=== PATIENT | female | born 1970 | race Caucasian/White ===

== ENCOUNTER → 2017-09-18 | Outpatient (CLI) | payer OTHER ==
[~2017-09-18] MED LIST: ALPR.25 PO; AMBI10TA PO; LEVO-244 PO; LISI40TA PO; PHEN-556 PO; SYNT112T PO; TOPA50TA7 PO
[2017-09-18 11:46] LABS: AUTOMATED NEUTROPHIL # 4.6 TH/MM3 (1.8-7.7); BASOPHIL # 0.1 TH/MM3 (0-0.2); BASOPHIL % 0.7 % (0.0-2.0); EOSINOPHIL # 0.1 TH/MM3 (0-0.4); EOSINOPHIL % 1.9 % (0.0-4.0); HEMATOCRIT 42.7 % (35.0-46.0); HEMOGLOBIN 14.1 GM/DL (11.6-15.3); LYMPH % 27.3 % (9.0-44.0); MEAN CELL VOLUME 92.4 FL (80.0-100.0); MEAN CORPUSCULAR HEMOGLOBIN 30.6 PG (27.0-34.0); MEAN CORPUSCULAR HGB CONC 33.1 % (32.0-36.0); MEAN PLATELET VOLUME 6.9 FL (7.0-11.0); MONO % 6.9 % (0.0-8.0); MONOCYTE # 0.5 TH/MM3 (0-0.9); NEUT % 63.2 % (16.0-70.0); PLATELET COUNT 319 TH/MM3 (150-450); RED BLOOD COUNT 4.62 MIL/MM3 (4.00-5.30); WHITE BLOOD COUNT 7.3 TH/MM3 (4.0-11.0)
== END ==
LOC: PHPRE 10:31
PROVIDERS: ATTEND Orthopaedic Surgery
DX: Z01.812 Encounter for preprocedural laboratory examination (principal); S92.351K Displaced fracture of fifth metatarsal bone, right foot, subsequent encounter for fracture with nonunion; X58.XXXA Exposure to other specified factors, initial encounter
CPT/HCPCS: 85025

== ENCOUNTER → 2017-09-27 | Day surgery (SDC) | payer OTHER ==
[~2017-09-27] VITALS: Ht 160 cm; Wt 93.0 kg
[~2017-09-27] MED LIST changes: +ACETAMINOPHEN/HYDROcodone 325 MG/5 MG TAB ONE; +BUPIVACAINE HCL PF 0.25% 30 ML VIAL ONE; +CHLORHEXIDINE GLUCONATE 2 % 1 PACK (2 CLOTHS) TOPICAL PRN; +CHLORHEXIDINE GLUCONATE 4% SOLN 120 ML BTL TOPICAL SCH; +CLINDAMYCIN 900 MG/NS 100 ML IV SCH; +CLINDAMYCIN PHOS 900 MG/6 ML VIAL ONE; +HYDROmorphone HCL PF 0.5 MG/0.5 ML SYRINGE ONE; +HYDROmorphone HCL PF 1 MG/ML VIAL ONE; +KETOROLAC TROMETHAMINE 30 MG/ML (IVP) VIAL ONE; +LACTATED RINGER'S 1000 ML INJ 1,000 ML ONE; +LACTATED RINGER'S 1000 ML IV PRN; +METOPROLOL TARTRATE 25 MG TAB PO PRN; +MORPHINE SULFATE 2 MG/ML INJ ONE; +POVIDONE IODINE 5% (ANTISEPSIS KIT) 4 APPLICATIONS EACH NARE PRN; +SODIUM CHLOR 0.9% 250 ML INJ 250 ML ONE; +SODIUM CHLORID 0.9% 500 ML IV PRN; +VANCOMYCIN 1000 MG/NS 250 ML (for <70 kg) IV SCH; +VANCOMYCIN HCL 1000 MG VIAL ONE
--- NOTE | 2017-09-27 11:18 | MP ---
cc: KATHERYN VAZQUEZ M.D. DATE OF SURGERY 09/27/[address] Royer Vazquez PREOPERATIVE DIAGNOSIS Nonunion right fifth metatarsal POSTOPERATIVE DIAGNOSIS Nonunion right fifth metatarsal PROCEDURE 1. Open reduction internal fixation and repair of nonunion of metatarsal shaft of fifth digit 2. Iliac crest bone graft harvesting. DETAILS OF THE PROCEDURE The patient was placed on the operating room table in the supine position and adequate general anesthesia was administered by the anesthesiologist. The right foot and the right iliac crest region were prepped and draped in the usual sterile fashion. The time-out was then called and the patient's name, location procedure etc. were full fully confirmed. A longitudinal incision was made over the fifth metatarsal shaft extending from the metatarsophalangeal joint and down to the base of the fifth metatarsal. The wound was taken down through the subcutaneous tissues and bleeding points were electrocauterized. We did exsanguinate the right lower extremity prior to incision and a tourniquet was inflated to 300. The underlying fascia and the periosteum were then exposed with limited dissection. The fracture site and nonunion site was confirmed to be a nonunion with a small amount of motion occurring at that level. We therefore proceeded with a curettage and debridement of the fracture site which was oblique and . The edges of this bone were freshened as well. Attention was then turned to the right iliac crest where a cortical cancellous bone graft was taken with a 1-inch incision being made over it. That wound was taken down through subcutaneous tissues and bleeding points were also electrocauterized. The deep fascia directly over the iliac crest was incised exposing the cortex. A small 1/2-inch osteotome was used to make a window through the iliac crest medial to the anterior superior iliac spine so as to avoid any possible injury to the neurologic components. The small curette was used to bring out some additional cancellus bone which was then transferred to the right foot. It was then placed between the bony fragments at the nonunion site and the reduction clamp was used to reduce the nonunion to a more anatomical position. A locking type plate with Combi holes was then applied and bent to the contour of the bone. A T-plate was utilized. A cortex screw was placed distally and another cortex screw was placed proximally and all the additional screws except for the anterior distal screw which was a cortex screws were locking screws. The fracture did appear now to be stable. We then obtained some additional bone graft and was placed over the nonunion site and further impacted in place and held there with the closure of the fascial tissue. The subcutaneous tissue was closed with interrupted 3-0 Vicryl and the skin edges were approximated with narrows luis. Attention was then turned to the right iliac crest. Bone wax was utilized over the bleeding area and the deep fascia was then closed with interrupted sutures placed in a [id number] fashion utilizing #1 Vicryl. Subcutaneous tissue was closed with interrupted 3-0 Vicryl and skin edges were approximated with metal luis. Xeroform gauze had been applied over both wounds. A bulky compression type dressing was placed over the right hip. The 4x4, sterile gauze was placed over the right foot wound and then wrapped with sterile Sof-Rol followed by a sterile Greg bandage. The patient's right foot was then placed back into her previously ordered and used boot. The tourniquet was deflated and examination of the toes revealed adequate return of circulation. Sponge count, needle counts and instrument counts were reported correct x2. The procedure was tolerated well and the patient went to the recovery room in satisfactory condition. MD ANDREA Castillo/HARVINDER /10:49 AM /10:57 AM
[2017-09-27 11:55] VITALS: TEMP 98.1
[2017-09-27 13:35] VITALS: BP 97/66; PULSE 75; RESP 16; O2SAT 98
== END | disposition home or self-care (01) ==
LOC: PHSDC 06:36
PROVIDERS: ATTEND Orthopaedic Surgery
DX: S92.351K Displaced fracture of fifth metatarsal bone, right foot, subsequent encounter for fracture with nonunion (principal); I10 Essential (primary) hypertension; E03.9 Hypothyroidism, unspecified; X50.1XXA Overexertion from prolonged static or awkward postures, initial encounter
CPT/HCPCS: 01480; 28322; 76000; C1713; J1170; J1885; J2270; J3370; J7050; J7120

== ENCOUNTER → 2018-03-18 | Outpatient (CLI) | payer OTHER ==
[~2018-03-18] MED LIST changes: -ACETAMINOPHEN/HYDROcodone 325 MG/5 MG TAB ONE; -BUPIVACAINE HCL PF 0.25% 30 ML VIAL ONE; +BUPR150CR PO; -CHLORHEXIDINE GLUCONATE 2 % 1 PACK (2 CLOTHS) TOPICAL PRN; -CHLORHEXIDINE GLUCONATE 4% SOLN 120 ML BTL TOPICAL SCH; -CLINDAMYCIN 900 MG/NS 100 ML IV SCH; -CLINDAMYCIN PHOS 900 MG/6 ML VIAL ONE; -HYDROmorphone HCL PF 0.5 MG/0.5 ML SYRINGE ONE; -HYDROmorphone HCL PF 1 MG/ML VIAL ONE; -KETOROLAC TROMETHAMINE 30 MG/ML (IVP) VIAL ONE; -LACTATED RINGER'S 1000 ML INJ 1,000 ML ONE; -LACTATED RINGER'S 1000 ML IV PRN; -METOPROLOL TARTRATE 25 MG TAB PO PRN; -MORPHINE SULFATE 2 MG/ML INJ ONE; -POVIDONE IODINE 5% (ANTISEPSIS KIT) 4 APPLICATIONS EACH NARE PRN; -SODIUM CHLOR 0.9% 250 ML INJ 250 ML ONE; -SODIUM CHLORID 0.9% 500 ML IV PRN; -VANCOMYCIN 1000 MG/NS 250 ML (for <70 kg) IV SCH; -VANCOMYCIN HCL 1000 MG VIAL ONE
[2018-03-18 11:06] LABS: AUTOMATED NEUTROPHIL # 5.8 TH/MM3 (1.8-7.7); BASOPHIL # 0.1 TH/MM3 (0-0.2); EOSINOPHIL # 0.2 TH/MM3 (0-0.4); EOSINOPHIL % 1.8 % (0.0-4.0); HEMATOCRIT 39.5 % (35.0-46.0); HEMOGLOBIN 13.4 GM/DL (11.6-15.3); LYMPH % 25.9 % (9.0-44.0); LYMPHOCYTE # 2.4 TH/MM3 (1.0-4.8); MEAN CELL VOLUME 90.5 FL (80.0-100.0); MEAN CORPUSCULAR HEMOGLOBIN 30.6 PG (27.0-34.0); MEAN CORPUSCULAR HGB CONC 33.8 % (32.0-36.0); MEAN PLATELET VOLUME 7.7 FL (7.0-11.0); MONO % 8.1 % (0.0-8.0); MONOCYTE # 0.8 TH/MM3 (0-0.9); NEUT % 63.2 % (16.0-70.0); PLATELET COUNT 269 TH/MM3 (150-450); RED BLOOD COUNT 4.37 MIL/MM3 (4.00-5.30); RED CELL DISTRIBUTION WIDTH 12.1 % (11.6-17.2); WHITE BLOOD COUNT 9.3 TH/MM3 (4.0-11.0)
--- NOTE | 2018-03-18 16:05 | EKG ---
Date Performed: 03/18/2018 Time Performed: 10:53:52 PTAGE: 47 years EKG: Sinus rhythm NORMAL ECG NO PREVIOUS TRACING DOCTOR: Oly Campbell Interpretating Date/Time 03/18/2018 16:02:40
== END ==
LOC: PHPRE 10:22
PROVIDERS: ATTEND Orthopaedic Surgery
DX: Z01.812 Encounter for preprocedural laboratory examination (principal); Z01.810 Encounter for preprocedural cardiovascular examination; S92.351K Displaced fracture of fifth metatarsal bone, right foot, subsequent encounter for fracture with nonunion; X58.XXXD Exposure to other specified factors, subsequent encounter
CPT/HCPCS: 36415; 85025; 93005

== ENCOUNTER → 2018-03-21 | Day surgery (SDC) | payer OTHER ==
[~2018-03-21] VITALS: Ht 160 cm; Wt 106.0 kg
[~2018-03-21] MED LIST changes: +ACETAMINOPHEN/HYDROcodone 325 MG/5 MG TAB ONE; +BUPIVACAINE HCL PF 0.5% 10 ML VIAL ONE; +CHLORHEXIDINE GLUCONATE 2 % 1 PACK (2 CLOTHS) TOPICAL PRN; +CHLORHEXIDINE GLUCONATE 4% SOLN 120 ML BTL TOPICAL SCH; +CLINDAMYCIN 900 MG/NS 100 ML IV SCH; +HYDROmorphone HCL PF 0.5 MG/0.5 ML SYRINGE ONE; +LACTATED RINGER'S 1000 ML IV PRN; +METOPROLOL TARTRATE 25 MG TAB PO PRN; +MORPHINE SULFATE 2 MG/ML SYRINGE ONE; +MORPHINE SULFATE 4 MG/ML INJ ONE; -PHEN-556 PO; +POVIDONE IODINE 5% (ANTISEPSIS KIT) 4 APPLICATIONS EACH NARE PRN; +SODIUM CHLORID 0.9% 500 ML IV PRN; +VANCOMYCIN 1000 MG/NS 250 ML (for <70 kg) IV SCH
--- NOTE | 2018-03-21 11:59 | MP ---
cc: Ean Mcfarland MD DATE OF OPERATION: 03/21/2018 SURGEON: Ean Mcfarland MD PREOPERATIVE DIAGNOSES: 1. Healed fifth metatarsal fracture. 2. Adventitious bursitis with failure of hardware. POSTOPERATIVE DIAGNOSES: 1. Healed fifth metatarsal fracture. 2. Adventitious bursitis with failure of hardware. PROCEDURES PERFORMED: Arthrotomy right foot and removal of plate and screws. DETAILS OF PROCEDURE: The patient was placed on the operating room table in the supine position. Adequate general anesthesia was administered by Dr. Gross, the anesthesiologist. The right foot and ankle were prepped and draped in the usual sterile fashion. A timeout was called, and the patient's name, procedure, location, etc. were fully verified. An Esmarch bandage was used to exsanguinate the left foot and ankle and lower leg and a pneumatic tourniquet was inflated at the level of the proximal thigh to 300. Utilizing the old scar, a longitudinal incision was made over the fifth metatarsal along its dorsal surface and lateral side. The wound was taken down through the subcutaneous tissues and bleeding points electrocauterized. No significant bleeding was encountered. Dissection was carried down to the periosteal tissue and scar tissue that was overlying the palpable mini compression plate. The soft tissues were cleared from the plate and screws. We noted, at that time, that there was a proximal screw was loose and protruding. The rest of the plate appeared to be intact with no additional loosening of screws. Individually, each screw was removed by a hand screwdriver and the plate was lifted from the metatarsal bone with a periosteal elevator. The screw holes were smoothed with a rongeur. The fracture was not fully exposed, but there did not appear to be any signs of movement or continued nonunion. The scar tissue was then reapproximated with a running simple suture of 3-0 Vicryl. The skin edges were approximated with multiple small luis. Xeroform gauze was applied over the wound followed by application of a compression dressing. The tourniquet was deflated and examination of the toes revealed adequate return of circulation. Sponge count, needle counts and instrument counts were reportedly correct x 2. The estimated blood loss was nil. The patient tolerated the procedure well and went to the recovery room in satisfactory condition. MD SANTA Castillo , 11:44 AM , 11:58 AM
[2018-03-21 13:30] VITALS: BP 104/54; PULSE 72; RESP 16; TEMP 98; O2SAT 100
== END | disposition home or self-care (01) ==
LOC: PHSDC 07:55
PROVIDERS: ATTEND Orthopaedic Surgery
DX: T85.698A Other mechanical complication of other specified internal prosthetic devices, implants and grafts, initial encounter (principal); M71.571 Other bursitis, not elsewhere classified, right ankle and foot
CPT/HCPCS: 01480; 20680; J1170; J2270; J3010; J3370; J7050; J7120